=== PATIENT | female | born 1945 | race Caucasian/White ===

== ENCOUNTER 2020-11-01 13:16 | Emergency (ER) | payer MEDICARE, SELFPAY ==
[2020-11-01 13:25] VITALS: BP 133/84; PULSE 73; RESP 16; TEMP 36.8; O2SAT 99
--- NOTE | 2020-11-01 14:19 | ED.GENADUL_ITS ---
Discharge Plan Discharge Details Chief Complaint: Orthopedic Primary Care Provider: None,None ED Provider: Viviane Downing Home Meds and New Rx's Prescriptions: No Action atorvastatin 20 mg Tablet 20 mg PO DAILY RF: 0 metoprolol succinate 50 mg Tablet Extended Release 24 Hr 50 mg PO DAILY RF: 0 levothyroxine 75 mcg Tablet 75 mcg PO DAILY RF: 0 aspirin [Baby Aspirin] 81 mg Tablet,Chewable 81 mg PO DAILY RF: 0 Discharge Data Discharge Date/Time-TO BE ENTERED AT DEPARTURE: 11/01/20 15:05 Medical Decision Making Patient is a 75-year-old female, company by her , with complaint of right foot pain. Patient is confused at baseline, patient reports that this is her typical. She presents today after having dog jumped on the right foot yesterday. Right foot was noted to be swollen by daughter this morning. has not noted any swelling. Patient does have superficial abrasion. Has been reports that she did have discomfort when she was applied this morning. On exam, patient appears nontoxic. Exam the right lower extremity shows intact distal pulses, good range of motion. No proximal fibular pain. No pain palpation of the ankle. No pain of the proximal fifth metatarsal. No pain over the midfoot. However, it is over the midfoot that she does have a small abrasion consistent with a dog would have jumped on her yesterday. Looking at the contralateral side, I believe the pain from the shoe came as either shoes or not warm socks and likely would have rubbed on the right skin causing discomfort. I did encourage the use socks most supportive shoe during the healing process. However, I have abundance of caution, we will plan to obtain imaging no particular if the patient has difficulty assessing or discussing her current symptoms. Prior to obtaining imaging, patient and eloped fromt he department. Prior to their elopement, was concerned that patient was, . I did not note any emergent, life threatening pathology on exam, was reported to be at her baseline. Her had decision making capacity. HPI General Mode of arrival: wheelchair . Date/Time Provider Initiated Documentation: 11/01/20 13:56 . Limitations to Documentation: altered mental status (dementia reported by family) . Information obtained by: family () and RN notes reviewed . HPI Narrative: Patient is a 75-year-old female brought in by her with chief complaint of right foot pain. Patient reports that the patient has history of dementia. He states that the patient is currently at her baseline. Patient is not able to provide much of her history. Report the patient suffered injury yesterday when a dog stepped on her right foot causing an abrasion. Patient does not recall the incident. Family noted swelling to the right foot,-. Patient resolved. He has noted abrasion. States the pain was maximal when he attempted to put shoe on her foot. Related Data Home Medications Medication Instructions Recorded Confirmed aspirin [Baby Aspirin] 81 mg PO DAILY 11/01/20 11/01/20 atorvastatin 20 mg PO DAILY 11/01/20 11/01/20 levothyroxine 75 mcg PO DAILY 11/01/20 11/01/20 metoprolol succinate 50 mg PO DAILY 11/01/20 11/01/20 Allergies Allergy/AdvReac Type Severity Reaction Status Date / Time No Known Allergies Allergy Unverified 11/01/20 13:28 General Stated Complaint: Orthopedic DARWIN: 4 Review of Systems Unobtainable due to mental status PFS Social History Smoking/Tobacco Use Status: Never Smoking risk assessment performed?: Yes Alcohol Intake: never Substance use type: does not use Exam Const General: cooperative, comfortable, no acute distress, well developed, well groomed, anxious and ill appearing chronically Nutritional Appearance: average body habitus and well nourished Orientation: alert, awake and confused Resp Effort & Inspection: normal respiratory effort, able to speak in complete sentences and no respiratory distress Cardio Rate: regular rate Rhythm: regular rhythm Skin Trauma: abrasion (right foot) Neuro General: patient alert and patient awake Motor: muscle tone normal throughout Sensory Exam: no sensory deficits noted Extrem Ankle/foot/toe images: 1. Area of abrasion. No appreciable swelling. Probable deformity. She is feeling worse in the toe. Intact capillary refill. Sensation is intact. No pain palpation about the ankle. No pain to palpation on the plantar aspect of the foot. Psych Appearance: grossly normal and well kempt Mental Status: mental status grossly normal Speech and Movement: speech and movement normal Course Vital Signs Vital signs: Vital Signs Temperature 36.8 C 11/01/20 13:25 Pulse 73 11/01/20 13:25 Respiratory Rate 16 11/01/20 13:25 Blood Pressure 133/84 11/01/20 13:25 Pulse Oximetry 99 08/22/21 13:25 Temperature 36.8 C 11/01/20 13:25 Temperature Source Skin 11/01/20 13:25 Pulse 73 11/01/20 13:25 Respiratory Rate 16 11/01/20 13:25 Respiratory Effort Non-Labored 11/01/20 13:25 Blood Pressure 133/84 11/01/20 13:25 Blood Pressure Position Sitting 11/01/20 13:25 Pulse Oximetry 99 11/01/20 13:25 Oxygen Delivery Method Room Air 11/01/20 13:25 Oxygen Flow Rate 0 11/01/20 13:25 Pain Level 5 11/01/20 13:37
--- NOTE | 2020-11-01 14:53 | NUR.NOTE ---
Nursing Note: opened room to the door and asked how much longer it was going to be, and then states Forget it, cancel everything, we are leaving. and the patient ambulated out of the Emergency Room without difficulty and without any paperwork.
--- NOTE | 2020-11-01 14:58 | NUR.NOTE ---
wants to leave with pt. states he can't deal with her in here-pt has dementia. he states foot does not look swollen anymone, pt able to stand on it, winter thought she should come here. Nursing Note:
== END 2020-11-01 15:05 ==
LOC: ER 14:59
PROVIDERS: Emergency Provider Physician Assistant
DX: S99.921A Unspecified injury of right foot, initial encounter (principal); W54.8XXA Other contact with dog, initial encounter; Z53.29 Procedure and treatment not carried out because of patient's decision for other reasons
CPT/HCPCS: 99281